=== PATIENT | female | born 1980 | race African-American/Black ===

== ENCOUNTER 2016-10-12 05:46 | Day surgery (SDC) | payer MEDICAID ==
[2016-10-12] MEDS ORDERED: ceFAZolin 2 GM/50 ML 50 ML IV ONE (06:34)
[2016-10-12] MEDS ORDERED: LACTATED RINGERS 1,000 ML IV ONE (06:37)
[2016-10-12 06:55] LABS: HCG UR QUAL NEGATIVE
[2016-10-12] MEDS ORDERED: BUPIVACAINE 0.5% PF 30 ML VIAL SUBQ ONE ×2 (07:21→08:24)
[2016-10-12] MEDS ORDERED: PROPOFOL 200 MG/20 ML VIAL IVP ONE (08:30)
[2016-10-12] MEDS ORDERED: fentaNYL 100 MCG/2 ML VIAL IVP ONE (08:30)
[2016-10-12] MEDS ORDERED: MIDAZOLAM 2 MG/2 ML VIAL IVP ONE (08:30)
[2016-10-12] MEDS ORDERED: DEXAMETHASONE 4 MG/ML VIAL IVP ONE (08:30)
[2016-10-12] MEDS ORDERED: LIDOCAINE-MPF 2% 5 ML VIAL IM ONE (08:30)
[2016-10-12] MEDS ORDERED: KETOROLAC 30 MG/ML VIAL IVP ONE (08:30)
[2016-10-12] MEDS ORDERED: ONDANSETRON 4 MG/2 ML VIAL IVP ONE (08:30)
[2016-10-12] MEDS ORDERED: ACETAMINOPHEN 1,000 MG/100 ML VIAL IV ONE (08:30)
[2016-10-12] MEDS: fentaNYL 100 MCG/2 ML VIAL ONE ×2 (08:38→08:50)
--- NOTE | 2016-10-12 09:07 | OPERATIVE REPORT ---
DATE OF SURGERY: 10/12/2016 00:00:00 SURGEON: Evelyne Moya MD. PREOPERATIVE DIAGNOSES 1. Umbilical keloid. 2. Umbilical hernia. POSTOPERATIVE DIAGNOSES 1. Umbilical keloid. 2. Umbilical hernia. PROCEDURE: excision of umbilical keloid, repair of umbilical hernia INDICATION FOR PROCEDURE: This is a 36-year-old female who presented to my office with complaints of an umbilical keloid and on examination was also noted to have an umbilical hernia. FINDINGS: After obtaining informed consent from the patient, she was brought into the operating room and positioned on the operating table in the supine position, taking note of pressure points. She was intubated by Anesthesia. She was administered perioperative antibiotics. She was prepped and draped in the usual sterile fashion and a time-out was taken according to protocol. An incision was made around the umbilical keloid, approximately 1.5 cm in size. The keloid was then completely transected using electrocautery. Subcutaneous tissue was divided down to the level of the umbilical fascia. A very small umbilical defect was noted. It was likely approximately 5 mm in size. This was exposed and the fascia was closed using a [id number] Prolene suture. The subcutaneous tissue was then reapproximated with 3-0 Vicryl, and the skin was closed with 4-0 Monocryl, and 30 mL of local anesthetic was utilized. Steri- Strips and a sterile dressing were applied. The patient was then extubated and taken to the recovery room in stable condition. ESTIMATED BLOOD LOSS: Less than 5 mL. SPECIMENS: None. COMPLICATIONS: None. JOB #: [id number] EXT JOB #:[id number] KEVIN
[2016-10-12 10:03] VITALS: BP 110/65
== END 2016-10-12 05:47 | disposition home or self-care (01) ==
LOC: SDS 05:46
PROVIDERS: ATTEND Surgery
PROC: 0HB7XZZ Excision of Abdomen Skin, External Approach (ICD-10-PCS; 2016-10-12)
PROC: 0WQF0ZZ Repair Abdominal Wall, Open Approach (ICD-10-PCS; principal; 2016-10-12 07:30)
DX: K42.9 Umbilical hernia without obstruction or gangrene (principal); L91.0 Hypertrophic scar
CPT/HCPCS: 11402; 49585; 81025; J0131; J0690; J7120

== ENCOUNTER 2017-06-08 15:14 | Outpatient (CLI) | payer MEDICAID | END 2017-06-08 15:15 | disposition home or self-care (01) | LOC: SC 15:14 | PROVIDERS: ATTEND Internal Medicine Pulmonary Disease | DX: G47.33 Obstructive sleep apnea (adult) (pediatric) (principal) | CPT/HCPCS: 99203; 99212 ==

== ENCOUNTER 2017-07-24 20:26 | Outpatient (CLI) | payer MEDICAID | END 2017-07-24 20:27 | disposition home or self-care (01) | LOC: SC 20:26 | PROVIDERS: ATTEND Internal Medicine Pulmonary Disease | DX: G47.33 Obstructive sleep apnea (adult) (pediatric) (principal) | CPT/HCPCS: 95810 ==

== ENCOUNTER 2017-08-16 09:58 | Outpatient (CLI) | payer MEDICAID | END 2017-08-16 09:59 | disposition home or self-care (01) | LOC: SC 09:58 | PROVIDERS: ATTEND Internal Medicine Pulmonary Disease | DX: G47.33 Obstructive sleep apnea (adult) (pediatric) (principal) | CPT/HCPCS: 99212; 99213 ==